=== PATIENT | female | born 1970 | race Hispanic/Latino ===

== ENCOUNTER 2019-05-09 15:35 | Emergency (ER) | payer BC ==
[2019-05-09 16:35] LABS: BASOPHILS % (AUTO) 0.1 % (0.0-5.0); EOSINOPHILS % (AUTO) 0.6 % (0.0-8.0); HEMATOCRIT 36.8 % (36-48); LYMPHOCYTES % (AUTO) 17.4 % (21.0-51.0); MEAN CORPUSCULAR HEMOGLOBIN 27.4 pg (27.0-33.0); MEAN CORPUSCULAR HGB CONC 32.9 g/dL (32.0-36.0); MEAN CORPUSCULAR VOLUME 83.3 fL (79-99); MONOCYTES % (AUTO) 5.9 % (3.0-13.0); PLATELET COUNT (AUTO) 345 K/uL (130-400); RED BLOOD CELL COUNT(AUTO) 4.42 MIL/uL (4.00-5.50); WHITE BLOOD COUNT (AUTO) 7.8 K/uL (4.8-10.8)
[2019-05-09 16:47] LABS: CREATININE 1.1 mg/dL (0.5-1.5); POTASSIUM 3.6 mmol/L (3.5-5.1)
[2019-05-09 16:50] LABS: INR 0.93 (0.85-1.15); PROTHROMBIN TIME 9.8 SEC (9.6-11.6)
== END 2019-05-09 18:43 | disposition home or self-care (01) ==
LOC: EDH 15:35
DX: M79.605 Pain in left leg (principal); M19.90 Unspecified osteoarthritis, unspecified site; Z98.890 Other specified postprocedural states
CPT/HCPCS: 36415; 80048; 85025; 85610; 85730; 93971

== ENCOUNTER → 2019-05-09 | Outpatient (CLI) | payer BC ==
[2019-05-09 12:34] LABS: BASOPHILS % (AUTO) 0.4 % (0.0-5.0); EOSINOPHILS % (AUTO) 0.8 % (0.0-8.0); HEMATOCRIT 35.1 % (36-48); LYMPHOCYTES % (AUTO) 18.8 % (21.0-51.0); MEAN CORPUSCULAR HEMOGLOBIN 27.5 pg (27.0-33.0); MEAN CORPUSCULAR HGB CONC 33.2 g/dL (32.0-36.0); MEAN CORPUSCULAR VOLUME 82.8 fL (79-99); MONOCYTES % (AUTO) 6.6 % (3.0-13.0); NEUTROPHILS % (AUTO) 73.4 % (40.0-77.0); PLATELET COUNT (AUTO) 346 K/uL (130-400); RED BLOOD CELL COUNT(AUTO) 4.24 MIL/uL (4.00-5.50); RED CELL DISTRIBUTION WIDTH 14.8 % (11.0-15.5); WHITE BLOOD COUNT (AUTO) 8.5 K/uL (4.8-10.8)
== END | disposition home or self-care (01) ==
LOC: LAB 11:17
PROVIDERS: ATTEND Internal Medicine
DX: R60.0 Localized edema (principal); M15.0 Primary generalized (osteo)arthritis
CPT/HCPCS: 36415; 85025; 85378

== ENCOUNTER → 2020-12-30 | Outpatient (CLI) | payer BC ==
[~2020-12-30] MED LIST: IOHEXOL-350 50ML VIAL IV ONE
== END | disposition home or self-care (01) ==
LOC: RAH 13:13
PROVIDERS: ATTEND Internal Medicine
DX: J90 Pleural effusion, not elsewhere classified (principal)
CPT/HCPCS: 71260; Q9967

== ENCOUNTER 2023-07-21 17:38 | Inpatient (IN) | payer BC ==
[~2023-07-21] VITALS: Ht 157.5 cm; Wt 118.9 kg
[2023-07-21] MEDS ORDERED: METOCLOPRAMIDE 10 MG/2 ML VIAL IVP ONE (18:00)
[2023-07-21] MEDS ORDERED: FAMOTIDINE 20MG VIAL IV ONE (18:00)
[2023-07-21] MEDS ORDERED: MORPHINE 4 MG SYG IVP ONE (18:00)
[2023-07-21] MEDS ORDERED: CEFTRIAXONE 2GM VIAL IVPB ONE (18:00)
[2023-07-21 18:48] LABS: BASOPHILS # (AUTO) 0.02 K/uL (0.00-0.20); BASOPHILS % (AUTO) 0.2 % (0.0-5.0); EOSINOPHILS # (AUTO) 0.04 K/uL (0.00-0.70); EOSINOPHILS % (AUTO) 0.4 % (0.0-8.0); IMMATURE GRANULOCYTE ABSOLUTE 0.07 K/uL (0-1); LYMPHOCYTES # (AUTO) 1.2 K/uL (1.0-4.8); LYMPHOCYTES % (AUTO) 12.2 % (21.0-51.0); MEAN CORPUSCULAR HEMOGLOBIN 29.5 pg (27.0-33.0); MEAN CORPUSCULAR HGB CONC 32.5 g/dL (32.0-36.0); MEAN CORPUSCULAR VOLUME 90.9 fL (79-99); MONOCYTES # (AUTO) 0.1 K/uL (0.1-1.0); MONOCYTES % (AUTO) 0.5 % (3.0-13.0); NEUTROPHILS # (AUTO) 8.5 K/uL (1.8-7.7); PLATELET COUNT (AUTO) 292 K/uL (130-400); RED CELL DISTRIBUTION WIDTH 13.7 % (11.0-15.5); WHITE BLOOD COUNT (AUTO) 9.9 K/uL (4.8-10.8)
[2023-07-21] MEDS ORDERED: 0.9%NACL 1000ML 1,503 ML IV ONE (19:00)
[2023-07-21 19:01] LABS: INR < 0.93 (0.85-1.15); PROTHROMBIN TIME 10.8 SEC (9.6-11.6)
[2023-07-21 19:03] LABS: PARTIAL THROMBOPLASTIN TIME 26.2 SEC (26.3-35.5)
[2023-07-21 19:05] LABS: CREATININE 0.9 mg/dL (0.5-1.5); POTASSIUM 3.7 mmol/L (3.5-5.1)
[2023-07-21 19:10] LABS: ALBUMIN 3.3 g/dL (3.5-5.0); BILIRUBIN,TOTAL 0.2 mg/dL (0.2-1.0); TOTAL PROTEIN, SERUM 7.9 g/dL (6.0-8.3)
[2023-07-21] MEDS ORDERED: ACETAMINOPHEN 325 MG TAB PO ONE (20:00)
[2023-07-21 20:07] LABS: APPEARANCE,URINE CLEAR (CLEAR); BILIRUBIN,URINE NEGATIVE (NEGATIVE); COLOR,URINE LIGHT-YELLOW (YELLOW); GLUCOSE, URINE (UA) NEGATIVE (NEGATIVE); KETONES,URINE NEGATIVE (NEGATIVE); LEUKOCYTE ESTERASE ,URINE 250 Leu/uL (NEGATIVE); NITRATE,URINE NEGATIVE (NEGATIVE); PROTEIN,URINE NEGATIVE (NEGATIVE); UROBILINOGEN,URINE 0.2 mg/dL (0.2-1.0)
[2023-07-21 20:15] LABS: SARS-CoV-2, RNA, NAAT NEGATIVE SARS CoV-2 (NEGATIVE)
[2023-07-21 20:19] LABS: ADD UA MICROSCOPIC YES
[2023-07-21 20:20] LABS: BACTERIA,URINE MOD /HPF (None Seen); MUCUS,URINE RARE LPF (None Seen); SQUAMOUS EPITHELIAL CELL,UR FEW /HPF (0-2); WBC,URINE 26-50 /HPF (0-1)
[2023-07-21 20:21] LABS: INFLUENZA TYPE A Negative For Type A (NEGATIVE)
[2023-07-21 20:34] LABS: INFLUENZA TYPE B Positive For Type B (NEGATIVE)
[2023-07-21] MEDS ORDERED: GUAIFENESIN-DM 200/20 MG 10 ML PO PRN (21:30)
[2023-07-21] MEDS ORDERED: OSELTAMIVIR PHOSPHATE 75 MG CAP PO ONE (21:30)
[2023-07-21] MEDS ORDERED: TAMSULOSIN HCL 0.4 MG CAP.ER.24H PO ONE (21:30)
[2023-07-21] MEDS ORDERED: CEFTRIAXONE 1G VIAL 1 GM in 0.9%NACL 50ML 50 ML IV SCH (21:30)
[2023-07-21] MEDS ORDERED: LACTATED RINGERS 1000ML 1,503 ML IV ONE (21:30)
[2023-07-21] MEDS ORDERED: KETOROLAC 10 MG TABLET PO SCH (21:30)
[2023-07-21] MEDS: KETOROLAC 10 MG TABLET PO SCH (22:26)
[2023-07-21] MEDS: DOXYCYCLINE 100MG+NS 250ML 250 ML IV SCH (22:35)
[2023-07-21 23:38] VITALS: PULSE 107; RESP 16
[2023-07-21] MEDS: ALBUTEROL 0.083% 2.5 MG/3 ML INH IH SCH (23:38)
[2023-07-22] VITALS (95 sets, daily range): BP systolic 81–163; BP diastolic 30–113; PULSE 86–139; RESP 11–106; TEMP 99.1; O2SAT 96
[2023-07-22] MEDS ORDERED: 0.9%NACL 1000ML 1,000 ML IV SCH (00:30)
[2023-07-22] MEDS: KETOROLAC 10 MG TABLET PO SCH ×4 (00:49→21:09)
[2023-07-22] MEDS: ONDANSETRON 4MG INJ IV PRN ×2 (01:01→13:15)
[2023-07-22] MEDS ORDERED: NOREPINEPHRIN 4MG/NS 250ML 250 ML IV ONE (01:29)
[2023-07-22] MEDS: MORPHINE 4 MG SYG IV PRN (02:45)
[2023-07-22] MEDS ORDERED: CEFTRIAXONE 2GM VIAL IVPB SCH ×2 (03:00→09:00)
[2023-07-22] MEDS: 0.9%NACL 1000ML 1,000 ML IV SCH ×3 (04:02→23:27)
[2023-07-22] MEDS: ALBUTEROL 0.083% 2.5 MG/3 ML INH IH SCH ×3 (06:15→23:02)
[2023-07-22] MEDS: NOREPINEPHRIN 4MG/NS 250ML 250 ML IV SCH ×2 (06:39→08:09)
[2023-07-22 07:09] LABS: BASOPHILS # (AUTO) 0.11 K/uL (0.00-0.20); BASOPHILS % (AUTO) 0.4 % (0.0-5.0); EOSINOPHILS # (AUTO) 0.01 K/uL (0.00-0.70); HEMATOCRIT 34.5 % (36-48); IMMATURE GRANULOCYTE ABSOLUTE 0.47 K/uL (0-1); LYMPHOCYTES # (AUTO) 0.6 K/uL (1.0-4.8); LYMPHOCYTES % (AUTO) 2.5 % (21.0-51.0); MEAN CORPUSCULAR HEMOGLOBIN 29.3 pg (27.0-33.0); MEAN CORPUSCULAR HGB CONC 31.6 g/dL (32.0-36.0); MEAN CORPUSCULAR VOLUME 92.7 fL (79-99); MONOCYTES # (AUTO) 0.6 K/uL (0.1-1.0); MONOCYTES % (AUTO) 2.4 % (3.0-13.0); NEUTROPHILS # (AUTO) 23.8 K/uL (1.8-7.7); NEUTROPHILS % (AUTO) 92.9 % (40.0-77.0); PLATELET COUNT (AUTO) 178 K/uL (130-400); RED BLOOD CELL COUNT(AUTO) 3.72 MIL/uL (4.00-5.50); RED CELL DISTRIBUTION WIDTH 14.2 % (11.0-15.5); WHITE BLOOD COUNT (AUTO) 25.7 K/uL (4.8-10.8)
[2023-07-22 07:30] LABS: CREATININE 1.2 mg/dL (0.5-1.5); MAGNESIUM 1.1 mg/dL (1.80-2.40); PHOSPHORUS 3.6 mg/dL (2.5-4.9); POTASSIUM 3.7 mmol/L (3.5-5.1)
[2023-07-22] MEDS: FAMOTIDINE 20MG TAB PO SCH ×2 (08:05→21:07)
[2023-07-22] MEDS: TAMSULOSIN HCL 0.4 MG CAP.ER.24H PO SCH (08:05)
[2023-07-22] MEDS: OSELTAMIVIR PHOSPHATE 75 MG CAP PO SCH ×2 (08:05→21:07)
[2023-07-22] MEDS: ENOXAPARIN SODIUM 40 MG/0.4 ML SYRINGE SQ SCH (08:06)
[2023-07-22] MEDS: DOXYCYCLINE 100MG+NS 250ML 250 ML IV SCH ×2 (08:06→23:24)
[2023-07-22] MEDS: MORPHINE 2 MG SYG IV PRN (11:37)
[2023-07-22] MEDS ORDERED: 0.9%NACL 50ML IV SCH (12:30)
[2023-07-22] MEDS: ZOSYN 3.375GM +NS 50ML IVPB SCH ×2 (15:00→21:07)
[2023-07-22] MEDS: ACETAMINOPHEN 325 MG TAB PO PRN ×2 (17:25→21:16)
[2023-07-23] VITALS (70 sets, daily range): BP systolic 93–141; BP diastolic 44–85; PULSE 72–91; RESP 10–62; O2SAT 96–100
[2023-07-23] MEDS: NOREPINEPHRIN 4MG/NS 250ML 250 ML IV SCH (03:22)
[2023-07-23] MEDS: KETOROLAC 10 MG TABLET PO SCH ×4 (03:29→20:54)
[2023-07-23] MEDS: ZOSYN 3.375GM +NS 50ML IVPB SCH (04:51)
[2023-07-23] MEDS: ONDANSETRON 4MG INJ IV PRN (06:13)
[2023-07-23] MEDS: ALBUTEROL 0.083% 2.5 MG/3 ML INH IH SCH ×3 (06:42→21:49)
[2023-07-23 07:10] LABS: HEMATOCRIT 33.5 % (36-48); MEAN CORPUSCULAR HEMOGLOBIN 29.6 pg (27.0-33.0); MEAN CORPUSCULAR HGB CONC 31.6 g/dL (32.0-36.0); MEAN CORPUSCULAR VOLUME 93.6 fL (79-99); RED BLOOD CELL COUNT(AUTO) 3.58 MIL/uL (4.00-5.50); RED CELL DISTRIBUTION WIDTH 14.6 % (11.0-15.5); WHITE BLOOD COUNT (AUTO) 28.6 K/uL (4.8-10.8)
[2023-07-23 07:22] LABS: BILIRUBIN,TOTAL 0.3 mg/dL (0.2-1.0); CREATININE 0.8 mg/dL (0.5-1.5); MAGNESIUM 1.3 mg/dL (1.80-2.40); TOTAL PROTEIN, SERUM 5.8 g/dL (6.0-8.3)
[2023-07-23] MEDS ORDERED: POTASSIUM CHLORIDE 20 MEQ/100 ML BAG IV SCH (08:00)
[2023-07-23] MEDS: FAMOTIDINE 20MG TAB PO SCH ×2 (08:09→20:54)
[2023-07-23] MEDS: TAMSULOSIN HCL 0.4 MG CAP.ER.24H PO SCH (08:09)
[2023-07-23] MEDS: ENOXAPARIN SODIUM 40 MG/0.4 ML SYRINGE SQ SCH (08:09)
[2023-07-23] MEDS: OSELTAMIVIR PHOSPHATE 75 MG CAP PO SCH ×2 (08:09→20:54)
[2023-07-23] MEDS: 0.9%NACL 1000ML 1,000 ML IV SCH ×2 (08:10→18:01)
[2023-07-23] MEDS ORDERED: POTASSIUM CHLORIDE 20MEQ/100ML 100 ML IV PRN (08:30)
[2023-07-23] MEDS ORDERED: POTASSIUM CHLORIDE 10% ELIXIR 20 MEQ/15 ML UDCUP PO PRN (08:30)
[2023-07-23] MEDS: DOXYCYCLINE 100MG+NS 250ML 250 ML IV SCH ×2 (08:40→20:54)
[2023-07-23] MEDS: MAGNESIUM 2GM PREMIX 50ML 50 ML IV SCH (08:50)
[2023-07-23] MEDS ORDERED: PROMETHAZINE HCL 25 MG/ML 1ML AMPULE IM PRN (09:00)
[2023-07-23] MEDS ORDERED: COMPOUND IV MISC 1 EACH IVSOLN MISC PRN (12:00)
[2023-07-23] MEDS: KCL 20 MEQ ERTAB PO PRN ×2 (12:07→14:54)
[2023-07-23] MEDS: MEROPENEM 1 GM in 0.9%NACL 100ML 100 ML IVPB SCH ×2 (12:41→20:53)
[2023-07-23 16:19] LABS: POTASSIUM 3.7 mmol/L (3.5-5.1)
[2023-07-23] MEDS: ACETAMINOPHEN 325 MG TAB PO PRN (18:32)
[2023-07-24] VITALS (23 sets, daily range): BP systolic 121–168; BP diastolic 52–90; PULSE 71–94; RESP 13–19; O2SAT 96–98
[2023-07-24] MEDS: ACETAMINOPHEN 325 MG TAB PO PRN ×2 (00:29→12:54)
[2023-07-24] MEDS: MEROPENEM 1 GM in 0.9%NACL 100ML 100 ML IVPB SCH ×3 (03:27→20:44)
[2023-07-24] MEDS: KETOROLAC 10 MG TABLET PO SCH ×2 (03:27→09:27)
[2023-07-24] MEDS: ONDANSETRON 4MG INJ IV PRN (03:34)
[2023-07-24 04:25] LABS: MEAN CORPUSCULAR HEMOGLOBIN 29.3 pg (27.0-33.0); MEAN CORPUSCULAR HGB CONC 31.9 g/dL (32.0-36.0); RED BLOOD CELL COUNT(AUTO) 3.48 MIL/uL (4.00-5.50); RED CELL DISTRIBUTION WIDTH 14.4 % (11.0-15.5); WHITE BLOOD COUNT (AUTO) 21.7 K/uL (4.8-10.8)
[2023-07-24] MEDS: MAGNESIUM 2GM PREMIX 50ML 50 ML IV SCH (04:58)
[2023-07-24] MEDS: 0.9%NACL 1000ML 1,000 ML IV SCH ×2 (05:07→17:05)
[2023-07-24] MEDS: ALBUTEROL 0.083% 2.5 MG/3 ML INH IH SCH ×3 (07:07→22:12)
[2023-07-24 08:42] LABS: BILIRUBIN,TOTAL 0.3 mg/dL (0.2-1.0); CREATININE 0.6 mg/dL (0.5-1.5); POTASSIUM 3.8 mmol/L (3.5-5.1); TOTAL PROTEIN, SERUM 5.7 g/dL (6.0-8.3)
[2023-07-24] MEDS: FAMOTIDINE 20MG TAB PO SCH ×3 (09:00→20:40)
[2023-07-24] MEDS: TAMSULOSIN HCL 0.4 MG CAP.ER.24H PO SCH ×2 (09:00→12:54)
[2023-07-24] MEDS: OSELTAMIVIR PHOSPHATE 75 MG CAP PO SCH ×2 (09:25→20:40)
[2023-07-24] MEDS: DOXYCYCLINE 100MG+NS 250ML 250 ML IV SCH ×2 (09:25→20:40)
[2023-07-24] MEDS: MORPHINE 2 MG SYG IV PRN (14:47)
[2023-07-24] MEDS ORDERED: FENTANYL CITRATE PF 50 MCG/1 ML 2ML VIAL ONE (17:12)
[2023-07-24] MEDS ORDERED: LIDOCAINE HCL 1% MDV 50ML VIAL ONE (17:12)
[2023-07-24] MEDS ORDERED: IODIXANOL 320 MG/ML 100 ML VIAL ONE (17:13)
[2023-07-24] MEDS ORDERED: MIDAZOLAM HCL 1 MG/ML 2ML VIAL ONE (17:13)
[2023-07-24] MEDS: MORPHINE 4 MG SYG IV PRN (20:46)
[2023-07-25] VITALS (7 sets, daily range): BP systolic 127–161; BP diastolic 63–82; PULSE 65–78; RESP 16–18; O2SAT 95–97
[2023-07-25] MEDS: ACETAMINOPHEN 325 MG TAB PO PRN ×2 (00:28→03:35)
[2023-07-25] MEDS: 0.9%NACL 1000ML 1,000 ML IV SCH ×2 (01:00→11:13)
[2023-07-25] MEDS: MEROPENEM 1 GM in 0.9%NACL 100ML 100 ML IVPB SCH ×2 (03:26→12:41)
[2023-07-25] MEDS: ALBUTEROL 0.083% 2.5 MG/3 ML INH IH SCH ×2 (06:19→13:47)
[2023-07-25] MEDS: TAMSULOSIN HCL 0.4 MG CAP.ER.24H PO SCH (09:31)
[2023-07-25] MEDS: FAMOTIDINE 20MG TAB PO SCH (09:32)
[2023-07-25] MEDS: OSELTAMIVIR PHOSPHATE 75 MG CAP PO SCH (09:32)
[2023-07-25] MEDS: DOXYCYCLINE 100MG+NS 250ML 250 ML IV SCH (09:47)
[2023-07-25] MEDS ORDERED: SULF1TAB42 PO (13:10)
[2023-07-25] MEDS ORDERED: OSEL75CA17 PO (13:30)
[2023-07-25] MEDS ORDERED: LOSARTAN 50 MG TABLET PO SCH (14:30)
== END 2023-07-25 15:00 | disposition home or self-care (01) | DRG 871 ==
LOC: EDH 17:38 → EDHIP 21:04 → 2CH 07-22 03:00 → 4AH 07-24 17:45
PROVIDERS: ADMIT Internal Medicine; ATTEND Internal Medicine
PROC: 0T9B70Z Drainage of Bladder with Drainage Device, Via Natural or Artificial Opening (ICD-10-PCS; 2023-07-21)
PROC: 0T9430Z Drainage of Left Kidney Pelvis with Drainage Device, Percutaneous Approach (ICD-10-PCS; principal; 2023-07-24)
DX: A41.50 Gram-negative sepsis, unspecified (principal); R65.21 Severe sepsis with septic shock; N13.6 Pyonephrosis; Z68.42 Body mass index [BMI] 45.0-49.9, adult; D84.9 Immunodeficiency, unspecified; R65.20 Severe sepsis without septic shock; J10.1 Influenza due to other identified influenza virus with other respiratory manifestations; K11.5 Sialolithiasis; E66.01 Morbid (severe) obesity due to excess calories; M06.9 Rheumatoid arthritis, unspecified; B96.1 Klebsiella pneumoniae [K. pneumoniae] as the cause of diseases classified elsewhere; G89.29 Other chronic pain; I10 Essential (primary) hypertension; K57.30 Diverticulosis of large intestine without perforation or abscess without bleeding; M23.309 Other meniscus derangements, unspecified meniscus, unspecified knee; Z79.620 Long term (current) use of immunosuppressive biologic; Z79.899 Other long term (current) drug therapy
CPT/HCPCS: 10030; 36415; 50432; 71045; 74176; 76770; 80048; 80053; 81001; 82550; 82948; 83605; 83735; 84100; 84132; 84145; 84484; 85025; 85027; 85610; 85730; 87040; 87071; 87077; 87088; 87186; 87205; 87635; 87804; 94640; 94664; 99156; 99157; C1769; C1894; C9803; G0378; J0696; J1644; J1650; J2185; J2250; J2270; J2405; J2543; J2550; J2765; J3010; J3475; J3490; J7120; Q9967; A4600; C1729

== ENCOUNTER → 2025-04-07 | Outpatient (CLI) | payer OTHER ==
[~2025-04-07] MED LIST changes: +CELE200 PO; +FURO40TA5 PO; +HUMIRA SQ; -IOHEXOL-350 50ML VIAL IV ONE; +LEVO-70 PO; +LOSA50TA64 PO; +TAMIFLU PO; +TAMS-55 PO
--- NOTE | 2025-04-07 16:27 | HMCIMG ---
Exam Type: KNEE/PATELLA 1-2VWS RT Clinical Information: RHEUMATOID ARTHRITIS, KNEE PAIN Comparison: None Findings: Routine views of the knee are without evidence of fracture, dislocation, arthritic, or inflammatory change. There is status post knee replacement with adequate visualization and alignment of bony and hardware elements. No complications are seen. There are vascular calcifications. The joint space is well maintained and there is no effusion. IMPRESSION: Status post knee replacement.
== END | disposition home or self-care (01) ==
LOC: RAH 15:36
PROVIDERS: ATTEND Internal Medicine
DX: M06.9 Rheumatoid arthritis, unspecified (principal); M25.561 Pain in right knee; Z96.659 Presence of unspecified artificial knee joint
CPT/HCPCS: 73560